=== PATIENT | female | born 1935 | race Caucasian/White ===

== ENCOUNTER 2020-12-07 12:43 | Outpatient (CLI) | payer MEDICARE, OTHER ==
[~2020-12-07 12:43] MED LIST: ALBU8HFA PO; ASPI-611 PO; CHOL2000 PO; CYAN100070 PO; ESCI10TA PO; FLUT1DIS7 INH; GLUC-131 PO; MAGN400C PO; METO-395 PO; OMEG500C PO; OSC500T PO
[2020-12-07] MEDS ORDERED: BARIUM SULFATE 340 ML SUSP.RECON***PROCEDURE AREA ONLY**DONT ENTER PO ONE (14:00)
== END 2020-12-07 23:59 | disposition home or self-care (01) ==
LOC: RAD 12:43
PROVIDERS: ATTEND Psychiatry & Neurology Neurology
DX: K21.9 Gastro-esophageal reflux disease without esophagitis (principal); R13.12 Dysphagia, oropharyngeal phase; R47.1 Dysarthria and anarthria; R49.0 Dysphonia; G20 Parkinson's disease
CPT/HCPCS: 74230